=== PATIENT | male | born 1960 | race Caucasian/White ===

== ENCOUNTER 2021-03-13 09:32 | Day surgery (SDC) | payer OTHER ==
[2021-03-12 10:47] LABS: COVID AG,FIA SOURCE NASOPHARYNGEAL
[~2021-03-13] VITALS: Ht 172.7 cm; Wt 94.3 kg
[~2021-03-13 09:32] MED LIST: ASCO500T20 PO; AZEL137S8 NS; BIOT10005 PO; CHOL200018 PO; DOCU50LI12 PO; DOXA1TAB6 PO; FLUT16H NASAL; GELA650C4 PO; MONT-35 PO; MULT-1081 PO; NAPR-1025 PO; OMEG-102 PO; SILO8CAP2 PO; SODIUM CHLORIDE 0.9% 1,000 ML ONE; TRI2515C TP; [UNRECOGNIZED DRUG - CODE] PO
[2021-03-13] MEDS ORDERED: PROPOFOL 1% 20 ML VIAL IVP ONE (09:33)
[2021-03-13] MEDS ORDERED: LIDOCAINE/PF 2% 5 ML VIAL IM ONE (09:33)
[2021-03-13] MEDS ORDERED: SODIUM CHLORIDE 0.9% 1,000 ML IV ONE (11:00)
== END 2021-03-13 14:00 | disposition home or self-care (01) ==
LOC: SURGERY 09:32
PROVIDERS: ATTEND Internal Medicine Gastroenterology
DX: Z12.11 Encounter for screening for malignant neoplasm of colon (principal); K63.5 Polyp of colon; K62.1 Rectal polyp; J45.909 Unspecified asthma, uncomplicated; E66.9 Obesity, unspecified; K21.9 Gastro-esophageal reflux disease without esophagitis; Z79.899 Other long term (current) drug therapy; Z98.890 Other specified postprocedural states; Z80.0 Family history of malignant neoplasm of digestive organs; Z88.0 Allergy status to penicillin; Z88.2 Allergy status to sulfonamides; Z87.11 Personal history of peptic ulcer disease
CPT/HCPCS: 45380; 45385; 87426; C1769; C9803; J2704; J3490; J7030